=== PATIENT | male | born 1990 | race African-American/Black ===

== ENCOUNTER 2018-06-28 04:35 | Emergency (ER) | payer SELFPAY ==
[~2018-06-28] VITALS: Ht 175.3 cm; Wt 63.5 kg
[2018-06-28] MEDS ORDERED: IPRATROPIUM BROMIDE (0.02%) 0.5MG/2.5ML NEB HHN STA ×2 (05:02→08:06)
[2018-06-28] MEDS ORDERED: METHYLPREDNISOLONE SOD SUCC 125 MG/2 ML VIAL IV STA (05:02)
[2018-06-28] MEDS ORDERED: ALBUTEROL (0.083%) 2.5MG/3ML NEB HHN STA ×2 (05:02→08:06)
[2018-06-28] MEDS ORDERED: PREDNISONE 20MG TABLET PO ONE (05:15)
[2018-06-28 09:31] VITALS: BP 131/69
== END 2018-06-28 09:32 | disposition home or self-care (01) ==
LOC: ER 04:35 → EDSEX 04:35 → ER 09:32
DX: J45.901 Unspecified asthma with (acute) exacerbation (principal); R03.0 Elevated blood-pressure reading, without diagnosis of hypertension; F17.210 Nicotine dependence, cigarettes, uncomplicated
CPT/HCPCS: 71045; 94640; 99284; J7512; J7611

== ENCOUNTER 2018-06-29 14:41 | Emergency (ER) | payer SELFPAY ==
[~2018-06-29] VITALS: Ht 175.3 cm; Wt 69.0 kg
[2018-06-29] MEDS ORDERED: PREDNISONE 20MG TABLET PO STA (14:54)
[2018-06-29] MEDS ORDERED: ALBUTEROL (0.083%) 2.5MG/3ML NEB HHN STA (14:54)
[2018-06-29] MEDS ORDERED: IPRATROPIUM BROMIDE (0.02%) 0.5MG/2.5ML NEB HHN STA (14:54)
[2018-06-29] MEDS ORDERED: ALBUTEROL (0.083%) 2.5MG/3ML NEB HHN ONE (18:30)
[2018-06-29 19:49] VITALS: BP 115/67
== END 2018-06-29 19:50 | disposition home or self-care (01) ==
LOC: ER 14:41
DX: J45.901 Unspecified asthma with (acute) exacerbation (principal); F17.200 Nicotine dependence, unspecified, uncomplicated
CPT/HCPCS: 71045; 94640; 99283; 99406; J7512; J7611

== ENCOUNTER 2018-08-18 23:44 | Emergency (ER) | payer MEDICAID ==
[~2018-08-18] VITALS: Ht 175.3 cm; Wt 61.0 kg
[2018-08-19] MEDS ORDERED: TETANUS, DIPHTHERIA, PERTUSSIS VAC/PF 0.5ML (>7YR OLD) IM ONE (01:45)
[2018-08-19 02:21] VITALS: BP 125/69
== END 2018-08-19 02:31 | disposition home or self-care (01) ==
LOC: ER 23:44
DX: S81.852A Open bite, left lower leg, initial encounter (principal); W54.0XXA Bitten by dog, initial encounter; Y93.89 Activity, other specified; Y92.410 Unspecified street and highway as the place of occurrence of the external cause; F17.210 Nicotine dependence, cigarettes, uncomplicated; F12.90 Cannabis use, unspecified, uncomplicated
CPT/HCPCS: 90471; 90715; 99283

== ENCOUNTER 2018-08-29 00:42 | Emergency (ER) | payer MEDICAID ==
[~2018-08-29] VITALS: Ht 175.3 cm; Wt 63.5 kg
[2018-08-29] MEDS ORDERED: DEXAMETHASONE 10 MG/ML VIAL IV ONE (01:45)
[2018-08-29] MEDS ORDERED: MANNITOL 12.5G (25%) VIAL 50ML IV ONE (01:45)
[2018-08-29] MEDS ORDERED: AMOXICILLIN/POTASSIUM CLAVULANATE 875/125MG TAB PO ONE (02:00)
[2018-08-29 02:10] VITALS: BP 138/77
== END 2018-08-29 02:18 | disposition home or self-care (01) ==
LOC: ER 00:42
DX: S81.852A Open bite, left lower leg, initial encounter (principal); J45.909 Unspecified asthma, uncomplicated; F17.200 Nicotine dependence, unspecified, uncomplicated; F12.10 Cannabis abuse, uncomplicated; W54.0XXA Bitten by dog, initial encounter; Y93.89 Activity, other specified; Y92.89 Other specified places as the place of occurrence of the external cause; Y99.8 Other external cause status
CPT/HCPCS: 99283; J2150

== ENCOUNTER 2018-09-02 19:09 | Inpatient (IN) | payer MEDICAID ==
[~2018-09-02] VITALS: Ht 177.8 cm; Wt 61.2 kg
[2018-09-02] MEDS ORDERED: METHYLPREDNISOLONE SOD SUCC 125 MG/2 ML VIAL IV ONE (19:45)
[2018-09-02] MEDS ORDERED: MAGNESIUM 2 G PREMIX 50 ML IV ONE (19:45)
[2018-09-02] MEDS ORDERED: ALBUTEROL (0.083%) 2.5MG/3ML NEB HHN ONE (19:45)
[2018-09-02] MEDS ORDERED: IPRATROPIUM BROMIDE (0.02%) 0.5MG/2.5ML NEB HHN ONE (19:45)
[2018-09-02] MEDS ORDERED: EPINEPHRINE 1:1000 1 MG/ML AMP INJ ONE ×3 (20:00→21:30)
[2018-09-02] MEDS ORDERED: ALBUTEROL (0.5%) 2.5MG/0.5ML NEB HHN ONE (21:30)
[2018-09-02 22:15] VITALS: BP 122/64
[2018-09-02 23:30] VITALS: BP 122/64
[2018-09-03] VITALS (13 sets, daily range): BP systolic 107–155; BP diastolic 45–83
[2018-09-03] MEDS ORDERED: GUAIFENESIN 200MG/10ML SUGAR FREE UDC PO PRN (00:45)
[2018-09-03] MEDS ORDERED: ONDANSETRON HCL 4MG/2ML INJ IV PRN (00:45)
[2018-09-03] MEDS ORDERED: CLONIDINE 0.1MG TABLET PO PRN (00:45)
[2018-09-03] MEDS ORDERED: LEVOFLOXACIN 500MG PREMIX 100 ML IV SCH (00:45)
[2018-09-03] MEDS ORDERED: MAGNESIUM/ALUMINUM HYDROXIDE/SIMETHICONE 30ML UDC PO PRN (00:45)
[2018-09-03] MEDS ORDERED: ACETAMINOPHEN 325MG TABLET PO PRN (00:45)
[2018-09-03] MEDS ORDERED: IPRATROPIUM/ALBUTEROL 0.5-3(2.5)MG/3ML NEB INH PRN (00:45)
[2018-09-03 01:52] LABS: HEMATOCRIT. 36.8 % (42.0-52.0); HEMOGLOBIN. 11.8 g/dL (14.0-18.0); MEAN CORPUSCULAR HEMOGLOBIN 28.4 pg (28.0-32.0); MEAN CORPUSCULAR VOLUME 88.3 fL (80.0-94.0); MEAN PLATELET VOLUME 7.7 fl (7.4-10.4); PLATELET 422 x1000/uL (130-400); RED BLOOD CELL COUNT 4.17 mill/uL (4.7-6.1); RED CELL DISTRIBUTION WIDTH 12.5 % (11.6-14.6)
[2018-09-03 01:57] LABS: CHLORIDE 106 mEq/L (98-107)
[2018-09-03] MEDS: METHYLPREDNISOLONE SOD SUCC 125 MG/2 ML VIAL IV SCH ×3 (02:02→15:22)
[2018-09-03 02:38] LABS: BG BASE EXCESS -1.5 mmol/L (-2.0-2.0); BG CARBOXYHEMOGLOBIN 0.4 % (0.5-1.5); BG DEOXYHEMOGLOBIN 2.2 % (0.0-5.0); BG FRACTION INSPIRED OXYGEN 28; BG HCO3 ACT 24.3 mmol/L (22.0-26.0); BG METHEMOGLOBIN 0.4 % (0.0-1.5); BG OXYGEN SATURATION 97.8 % (92.0-98.5); BG PCO2 45.5 mmHg (35.0-45.0); BG PH 7.346 (7.350-7.450); BG PO2 104.2 mmHg (75.0-100.0); BG SAMPLE SITE RIGHT RADIAL; BG VENT MODE NASAL CANNULA
[2018-09-03 03:15] LABS: PLATELET ESTIMATE SLIGHTLY INCREASED
[2018-09-03] MEDS ORDERED: MVI, ADULT NO.1 10 ML, FOLIC ACID 1 MG, THIAMINE HCL 100 MG in SODIUM CHLORIDE 0.9% 1,0... IV SCH ×4 (04:00)
[2018-09-03] MEDS: IPRATROPIUM/ALBUTEROL 0.5-3(2.5)MG/3ML NEB HHN SCH ×5 (04:36→20:39)
[2018-09-03] MEDS ORDERED: LEVOFLOXACIN 500MG PREMIX 100 ML IV NR (05:00)
[2018-09-03] MEDS: SODIUM CHLORIDE 0.9% INJ 3ML FLUSH IVF SCH ×3 (05:06→21:51)
[2018-09-03] MEDS: FAMOTIDINE 20MG TABLET PO SCH ×2 (09:25→21:51)
[2018-09-03] MEDS ORDERED: IPRATROPIUM/ALBUTEROL 0.5-3(2.5)MG/3ML NEB HHN SCH (12:00)
[2018-09-03] MEDS ORDERED: METHYLPREDNISOLONE SOD SUCC 40 MG/ML VIAL IV SCH (15:30)
[2018-09-03] MEDS: NICOTINE 21MG PATCH TD SCH (16:38)
[2018-09-03] MEDS ORDERED: AZITHROMYCIN 500 MG in DEXT 5% WATER 250 ML IV SCH (17:00)
[2018-09-03] MEDS ORDERED: MONTELUKAST SODIUM 10MG TABLET PO SCH (17:00)
[2018-09-03] MEDS ORDERED: LORATADINE 10MG TABLET PO SCH (21:00)
[2018-09-03] MEDS ORDERED: FAMOTIDINE 20MG/2ML VIAL IV SCH (21:00)
[2018-09-03] MEDS: FLUTICASONE PROPIONATE 50MCG/SPRAY BOTTLE BOTHNSTRLS SCH (21:50)
[2018-09-03] MEDS: METHYLPREDNISOLONE SOD SUCC 40 MG/ML VIAL IV SCH (21:51)
[2018-09-04] VITALS (12 sets, daily range): BP systolic 109–137; BP diastolic 52–86
[2018-09-04] MEDS: IPRATROPIUM/ALBUTEROL 0.5-3(2.5)MG/3ML NEB HHN SCH ×5 (00:42→16:15)
[2018-09-04] MEDS: SODIUM CHLORIDE 0.9% INJ 3ML FLUSH IVF SCH (05:36)
[2018-09-04] MEDS ORDERED: LEVOFLOXACIN 500MG PREMIX 100 ML IV SCH (06:00)
[2018-09-04 06:16] LABS: HEMATOCRIT. 36.7 % (42.0-52.0); HEMOGLOBIN. 11.8 g/dL (14.0-18.0); MEAN CORPUSCULAR HEMOGLOBIN 28.6 pg (28.0-32.0); MEAN CORPUSCULAR VOLUME 88.6 fL (80.0-94.0); MEAN PLATELET VOLUME 8.5 fl (7.4-10.4); PLATELET 443 x1000/uL (130-400); RED BLOOD CELL COUNT 4.14 mill/uL (4.7-6.1); RED CELL DISTRIBUTION WIDTH 12.1 % (11.6-14.6)
[2018-09-04 06:44] LABS: CHLORIDE 101 mEq/L (98-107)
[2018-09-04] MEDS: METHYLPREDNISOLONE SOD SUCC 40 MG/ML VIAL IV SCH (07:03)
[2018-09-04] MEDS: FLUTICASONE PROPIONATE 50MCG/SPRAY BOTTLE BOTHNSTRLS SCH (08:38)
[2018-09-04] MEDS: FAMOTIDINE 20MG TABLET PO SCH (08:38)
[2018-09-04] MEDS: NICOTINE 21MG PATCH TD SCH (08:45)
[2018-09-05 08:04] LABS: PLATELET ESTIMATE INCREASED
== END 2018-09-04 16:25 | disposition home or self-care (01) | DRG 133 ==
LOC: ER 19:09 → 5EST 20:32 → EDBEDREQSVC 20:33 → EDBEDREQ 20:33 → EDBEDREQTM 20:33 → ENRESERV 20:52
PROVIDERS: ADMIT Internal Medicine; ATTEND Internal Medicine
DX: J96.00 Acute respiratory failure, unspecified whether with hypoxia or hypercapnia (principal); J45.902 Unspecified asthma with status asthmaticus; R65.10 Systemic inflammatory response syndrome (SIRS) of non-infectious origin without acute organ dysfunction; J20.9 Acute bronchitis, unspecified; J00 Acute nasopharyngitis [common cold]; F17.210 Nicotine dependence, cigarettes, uncomplicated; F12.90 Cannabis use, unspecified, uncomplicated
CPT/HCPCS: 36415; 36600; 71045; 80048; 82375; 82805; 83735; 87804; 93005; 94640; 94644; 96365; 96375; 99291; J0456; J1956; J2920; J2930; J3411; J3475; J3490; J7030; J7050; J7060; J7611; J7620

== ENCOUNTER 2018-09-09 00:14 | Emergency (ER) | payer MEDICAID | END 2018-09-09 01:36 | disposition left against medical advice (07) | LOC: ER 00:14 | DX: M79.641 Pain in right hand (principal); Z53.21 Procedure and treatment not carried out due to patient leaving prior to being seen by health care provider ==

== ENCOUNTER 2019-04-02 01:55 | Emergency (ER) | payer MEDICAID ==
[~2019-04-02] VITALS: Ht 175.3 cm; Wt 69.0 kg
[2019-04-02] MEDS ORDERED: IPRATROPIUM/ALBUTEROL 0.5-3(2.5)MG/3ML NEB HHN ONE (06:00)
[2019-04-02] MEDS ORDERED: PREDNISONE 20MG TABLET PO ONE (08:15)
[2019-04-02 08:28] LABS: CHLORIDE 117 mEq/L (98-107)
[2019-04-02 08:29] LABS: BASOPHILS % 0.6 % (0.0-2.0); EOSINOPHILS % 7.6 % (0.0-5.0); HEMATOCRIT. 37.8 % (42.0-52.0); HEMOGLOBIN. 12.4 g/dL (14.0-18.0); LYMPHOCYTES % 25.6 % (20.0-50.0); MEAN CORPUSCULAR HEMOGLOBIN 29.4 pg (28.0-32.0); MEAN CORPUSCULAR VOLUME 89.5 fL (80.0-94.0); MEAN PLATELET VOLUME 9.1 fl (7.4-10.4); MONOCYTES % 9.2 % (2.0-8.0); PLATELET 436 x1000/uL (130-400); RED BLOOD CELL COUNT 4.22 mill/uL (4.7-6.1); RED CELL DISTRIBUTION WIDTH 12.8 % (11.6-14.6)
[2019-04-02 08:33] LABS: ETHANOL BLOOD < 10 mg/dL
[2019-04-02 10:00] VITALS: BP 115/79
[2019-04-02 11:51] LABS: CLARITY URINE CLEAR (CLEAR); COLOR URINE YELLOW (YELLOW); KETONES URINE NEGATIVE (NEGATIVE); LEUKOCYTE ESTERASE URINE NEGATIVE (NEGATIVE); NITRITE URINE NEGATIVE (NEGATIVE); OCCULT BLOOD URINE 2+ (NEGATIVE); PH URINE 5.5 (4.5-8.0); PROTEIN URINE NEGATIVE (NEGATIVE); SPECIFIC GRAVITY URINE 1.023 (1.005-1.030); UROBILINOGEN URINE 0.2 E.U./dL (0.2-1.0)
[2019-04-02 11:59] LABS: *AMPHETAMINES SCREEN URINE PRESUMTIVE POSITIVE (NEGATIVE)
[2019-04-02 12:00] LABS: *BARBITURATES SCREEN URINE NEGATIVE (NEGATIVE); *BENZODIAZEPINES SCREEN URINE NEGATIVE (NEGATIVE); *COCAINE SCREEN URINE NEGATIVE (NEGATIVE); CANNABINOID URINE SCREEN PRESUMTIVE POSITIVE (NEGATIVE); METHADONE URINE SCREEN NEGATIVE (NEGATIVE); OPIATES URINE SCREEN NEGATIVE (NEGATIVE); PHENCYCLIDINE URINE SCREEN NEGATIVE (NEGATIVE)
== END 2019-04-02 11:36 | disposition home or self-care (01) ==
LOC: ER 01:55
DX: J45.909 Unspecified asthma, uncomplicated (principal)
CPT/HCPCS: 36415; 71045; 80053; 80305; 80320; 81003; 82962; 85025; 94640; 99284; J7512; J7620; Z7610; G0480

== ENCOUNTER 2019-09-06 12:46 | Emergency (ER) | payer MEDICAID ==
[~2019-09-06] VITALS: Ht 182.9 cm; Wt 76.0 kg
[2019-09-06 12:55] VITALS: BP 109/68
== END 2019-09-06 13:39 | disposition home or self-care (01) ==
LOC: ER 12:46
DX: S01.111D Laceration without foreign body of right eyelid and periocular area, subsequent encounter (principal); J45.909 Unspecified asthma, uncomplicated; X58.XXXD Exposure to other specified factors, subsequent encounter
CPT/HCPCS: 99281; Z7610

== ENCOUNTER 2019-10-19 16:33 | Emergency (ER) | payer MEDICAID ==
[~2019-10-19] VITALS: Ht 180.3 cm; Wt 65.0 kg
[2019-10-19] MEDS ORDERED: ALBUTEROL (0.083%) 2.5MG/3ML NEB HHN STA (17:26)
[2019-10-19] MEDS ORDERED: IPRATROPIUM BROMIDE (0.02%) 0.5MG/2.5ML NEB HHN STA (17:26)
[2019-10-19] MEDS ORDERED: PREDNISONE 20MG TABLET PO STA (17:26)
[2019-10-19 18:02] VITALS: BP 128/81
== END 2019-10-19 19:44 | disposition home or self-care (01) ==
LOC: ER 16:33
DX: J45.901 Unspecified asthma with (acute) exacerbation (principal); F17.210 Nicotine dependence, cigarettes, uncomplicated; Z71.6 Tobacco abuse counseling
CPT/HCPCS: 71045; 94644; 99285; 99406; J7512; J7611; Z7610

== ENCOUNTER 2019-11-01 15:09 | Emergency (ER) | payer MEDICAID ==
[~2019-11-01] VITALS: Ht 167.6 cm; Wt 65.0 kg
[2019-11-01 16:21] VITALS: BP 127/84
== END 2019-11-01 17:42 | disposition left against medical advice (07) ==
LOC: ER 15:09
DX: J45.909 Unspecified asthma, uncomplicated (principal); Z53.21 Procedure and treatment not carried out due to patient leaving prior to being seen by health care provider

== ENCOUNTER 2019-11-01 18:30 | Emergency (ER) | payer MEDICAID ==
[~2019-11-01] VITALS: Ht 167.6 cm; Wt 65.0 kg
[2019-11-01 18:33] VITALS: BP 127/65
[2019-11-01] MEDS ORDERED: PREDNISONE 20MG TABLET PO STA (19:01)
[2019-11-01] MEDS ORDERED: ALBUTEROL (0.083%) 2.5MG/3ML NEB HHN STA (19:01)
[2019-11-01] MEDS ORDERED: IPRATROPIUM BROMIDE (0.02%) 0.5MG/2.5ML NEB HHN STA (19:01)
== END 2019-11-01 21:44 | disposition home or self-care (01) ==
LOC: ER 18:30
DX: J45.901 Unspecified asthma with (acute) exacerbation (principal); F17.200 Nicotine dependence, unspecified, uncomplicated; F12.10 Cannabis abuse, uncomplicated
CPT/HCPCS: 99283; J7512; J7611; 99282

== ENCOUNTER 2019-11-11 13:47 | Emergency (ER) | payer MEDICAID ==
[~2019-11-11] VITALS: Ht 180.3 cm; Wt 63.5 kg
[2019-11-11] MEDS ORDERED: albuterol (14:42)
[2019-11-11] MEDS ORDERED: PREDNISONE 20MG TABLET PO ONE (20:15)
[2019-11-11] MEDS ORDERED: LEVOFLOXACIN 500MG TABLET PO ONE (20:15)
[2019-11-11] MEDS ORDERED: IPRATROPIUM/ALBUTEROL 0.5-3(2.5)MG/3ML NEB HHN ONE (20:15)
[2019-11-11 22:57] VITALS: BP 120/69
== END 2019-11-11 22:59 | disposition home or self-care (01) ==
LOC: ER 13:47
DX: S43.422A Sprain of left rotator cuff capsule, initial encounter (principal); J40 Bronchitis, not specified as acute or chronic; X58.XXXA Exposure to other specified factors, initial encounter; Y93.89 Activity, other specified; Y92.89 Other specified places as the place of occurrence of the external cause; Y99.8 Other external cause status; F17.290 Nicotine dependence, other tobacco product, uncomplicated; F12.10 Cannabis abuse, uncomplicated
CPT/HCPCS: 71045; 94640; 99283; J7512; J7620; Z7610

== ENCOUNTER 2020-05-01 14:55 | Emergency (ER) | payer MEDICAID ==
[~2020-05-01 14:55] MED LIST: albuterol
== END 2020-05-01 15:17 | disposition left against medical advice (07) ==
LOC: ER 14:55
DX: Z53.21 Procedure and treatment not carried out due to patient leaving prior to being seen by health care provider (principal)

== ENCOUNTER 2020-05-27 20:27 | Emergency (ER) | payer MEDICAID ==
[~2020-05-27] VITALS: Ht 175.3 cm; Wt 66.0 kg
[2020-05-27 20:53] VITALS: BP 125/102
[2020-05-27] MEDS ORDERED: PREDNISONE 20MG TABLET PO STA (22:03)
[2020-05-27] MEDS ORDERED: IPRATROPIUM BROMIDE (0.02%) 0.5MG/2.5ML NEB HHN STA (22:03)
[2020-05-27] MEDS ORDERED: ALBUTEROL (0.083%) 2.5MG/3ML NEB HHN STA (22:03)
== END 2020-05-27 23:45 | disposition left against medical advice (07) ==
LOC: ER 20:27
DX: J45.909 Unspecified asthma, uncomplicated (principal); R05 Cough
CPT/HCPCS: 71045; 94640; 99283; Z7610

== ENCOUNTER 2020-05-28 04:41 | Emergency (ER) | payer MEDICAID ==
[~2020-05-28] VITALS: Ht 175.3 cm; Wt 82.0 kg
[2020-05-28 07:22] VITALS: BP 124/82
[2020-08-20] MEDS ORDERED: MED4 MT (11:39)
[2020-08-20] MEDS ORDERED: ALBU18HF2 IH (11:39)
[2020-08-20] MEDS ORDERED: FLUT1DIS2 INH (11:39)
== END 2020-05-28 07:24 | disposition home or self-care (01) ==
LOC: ER 04:41
DX: J45.901 Unspecified asthma with (acute) exacerbation (principal); R03.0 Elevated blood-pressure reading, without diagnosis of hypertension; F17.200 Nicotine dependence, unspecified, uncomplicated; F12.90 Cannabis use, unspecified, uncomplicated
CPT/HCPCS: 99283

== ENCOUNTER 2020-07-05 22:39 | Emergency (ER) | payer MEDICAID ==
[~2020-07-05] VITALS: Ht 175.3 cm; Wt 65.0 kg
[2020-07-05] MEDS ORDERED: IPRATROPIUM BROMIDE (0.02%) 0.5MG/2.5ML NEB HHN STA (23:12)
[2020-07-05] MEDS ORDERED: PREDNISONE 20MG TABLET PO STA (23:12)
[2020-07-05] MEDS ORDERED: ALBUTEROL (0.083%) 2.5MG/3ML NEB HHN STA (23:12)
[2020-07-06 01:01] VITALS: BP 117/87
== END 2020-07-06 01:03 | disposition home or self-care (01) ==
LOC: ER 22:39
DX: J45.901 Unspecified asthma with (acute) exacerbation (principal); F17.200 Nicotine dependence, unspecified, uncomplicated; F12.10 Cannabis abuse, uncomplicated
CPT/HCPCS: 93005; 94640; 99283; J7512; Z7610

== ENCOUNTER 2020-07-13 01:18 | Emergency (ER) | payer MEDICAID ==
[~2020-07-13] VITALS: Ht 172.7 cm; Wt 69.0 kg
[2020-07-13] MEDS ORDERED: IPRATROPIUM BROMIDE (0.02%) 0.5MG/2.5ML NEB HHN STA (01:52)
[2020-07-13] MEDS ORDERED: ALBUTEROL (0.083%) 2.5MG/3ML NEB HHN STA (01:52)
[2020-07-13] MEDS ORDERED: PREDNISONE 20MG TABLET PO STA (01:52)
[2020-07-13 05:18] VITALS: BP 137/90
== END 2020-07-13 05:19 | disposition home or self-care (01) ==
LOC: ER 01:18
DX: J45.901 Unspecified asthma with (acute) exacerbation (principal); F12.10 Cannabis abuse, uncomplicated
CPT/HCPCS: 71045; 94644; 99285; J7512; Z7610

== ENCOUNTER 2020-08-01 03:18 | Emergency (ER) | payer MEDICAID ==
[~2020-08-01] VITALS: Ht 170.2 cm; Wt 59.0 kg
[2020-08-01] MEDS ORDERED: IPRATROPIUM BROMIDE (0.02%) 0.5MG/2.5ML NEB HHN STA (03:45)
[2020-08-01] MEDS ORDERED: ALBUTEROL (0.083%) 2.5MG/3ML NEB HHN STA (03:45)
[2020-08-01 05:44] VITALS: BP 125/76
[2020-08-02] MEDS ORDERED: FLUT1DIS2 IH (16:52)
[2020-08-02] MEDS ORDERED: MONT10TA21 PO (16:52)
== END 2020-08-01 05:46 | disposition home or self-care (01) ==
LOC: ER 03:18
DX: J45.901 Unspecified asthma with (acute) exacerbation (principal); F17.210 Nicotine dependence, cigarettes, uncomplicated; F12.90 Cannabis use, unspecified, uncomplicated
CPT/HCPCS: 93005; 94640; 99283; Z7610

== ENCOUNTER 2020-08-02 07:34 | Inpatient (IN) | payer MEDICAID ==
[~2020-08-02] VITALS: Ht 175.3 cm; Wt 60.8 kg
[2020-08-02] MEDS ORDERED: IPRATROPIUM BROMIDE (0.02%) 0.5MG/2.5ML NEB HHN STA (07:36)
[2020-08-02] MEDS ORDERED: ALBUTEROL (0.083%) 2.5MG/3ML NEB HHN STA (07:36)
[2020-08-02] MEDS ORDERED: METHYLPREDNISOLONE SOD SUCC 125 MG/2 ML VIAL IV STA (07:36)
[2020-08-02] MEDS ORDERED: MAGNESIUM 2 G PREMIX 50 ML IV STA (07:36)
[2020-08-02] MEDS ORDERED: SODIUM CHLORIDE 0.9% 1,000 ML IV ONE (07:36)
[2020-08-02 07:56] LABS: BASOPHILS % 0.8 % (0.0-2.0); EOSINOPHILS % 9.8 % (0.0-5.0); HEMATOCRIT. 37.9 % (42.0-52.0); HEMOGLOBIN. 12.2 g/dL (14.0-18.0); LYMPHOCYTES % 23.1 % (20.0-50.0); MEAN CORPUSCULAR HEMOGLOBIN 28.8 pg (28.0-32.0); MEAN CORPUSCULAR VOLUME 89.8 fL (80.0-94.0); MEAN PLATELET VOLUME 8.4 fl (7.4-10.4); MONOCYTES % 12.9 % (2.0-8.0); NEUTROPHILS % 53.4 % (40.0-76.0); PLATELET 317 x1000/uL (130-400); RED BLOOD CELL COUNT 4.22 mill/uL (4.7-6.1); RED CELL DISTRIBUTION WIDTH 12.9 % (11.6-14.6)
[2020-08-02 08:01] LABS: CHLORIDE 108 mEq/L (98-107)
[2020-08-02 08:04] LABS: ETHANOL BLOOD < 10 mg/dL
[2020-08-02 08:08] LABS: CREATINE KINASE 372 IU/L (39-308); PROTHROMBIN TIME 10.5 sec (9.6-11.0)
[2020-08-02] MEDS ORDERED: AZITHROMYCIN 500 MG in DEXT 5% WATER 250 ML IV ONE (08:30)
[2020-08-02] MEDS ORDERED: SODIUM CHLORIDE 0.9% 1000ML BAG (SEPSIS BOLUS) IV ONE (08:30)
[2020-08-02 10:42] VITALS: BP 131/56
[2020-08-02 12:00] VITALS: BP 140/97
[2020-08-02] MEDS ORDERED: DOCUSATE SODIUM 100MG CAPSULE PO PRN (12:15)
[2020-08-02] MEDS ORDERED: ACETAMINOPHEN 325MG TABLET PO PRN ×2 (12:15)
[2020-08-02] MEDS ORDERED: GUAIFENESIN 200MG/10ML SUGAR FREE UDC PO PRN (12:15)
[2020-08-02] MEDS ORDERED: LORAZEPAM 0.5MG TABLET PO PRN (12:15)
[2020-08-02] MEDS ORDERED: HYDROCODONE/ACETAMINOPHEN 5/325MG TABLET PO PRN (12:15)
[2020-08-02] MEDS ORDERED: IPRATROPIUM/ALBUTEROL 0.5-3(2.5)MG/3ML NEB HHN PRN (12:15)
[2020-08-02] MEDS ORDERED: CLONIDINE 0.1MG TABLET PO PRN (12:15)
[2020-08-02] MEDS ORDERED: IPRATROPIUM/ALBUTEROL 0.5-3(2.5)MG/3ML NEB HHN NR (12:29)
[2020-08-02 12:36] LABS: BG BASE EXCESS -2.9 mmol/L (-2.0-2.0); BG CARBOXYHEMOGLOBIN 0.3 % (0.5-1.5); BG DEOXYHEMOGLOBIN 10.9 % (0.0-5.0); BG HCO3 ACT 24.7 mmol/L (22.0-26.0); BG METHEMOGLOBIN 0.1 % (0.0-1.5); BG OXYGEN SATURATION 89.1 % (92.0-98.5); BG OXYHEMOGLOBIN 88.7 % (94.0-97.0); BG PCO2 54.8 mmHg (35.0-45.0); BG PH 7.271 (7.350-7.450); BG PO2 62.7 mmHg (75.0-100.0); BG SAMPLE SITE RIGHT BRACHIAL; BG VENT MODE ROOM AIR
[2020-08-02] MEDS: METHYLPREDNISOLONE SOD SUCC 40 MG/ML VIAL IV SCH ×2 (12:37→21:21)
[2020-08-02] MEDS: LORATADINE 10MG TABLET PO SCH (13:47)
[2020-08-02] MEDS: FAMOTIDINE 20MG TABLET PO SCH ×2 (13:47→20:44)
[2020-08-02 15:29] LABS: CLARITY URINE CLEAR (CLEAR); COLOR URINE YELLOW (YELLOW); KETONES URINE TRACE (NEGATIVE); LEUKOCYTE ESTERASE URINE NEGATIVE (NEGATIVE); NITRITE URINE NEGATIVE (NEGATIVE); OCCULT BLOOD URINE NEGATIVE (NEGATIVE); PH URINE 5.5 (4.5-8.0); PROTEIN URINE NEGATIVE (NEGATIVE)
[2020-08-02 16:00] VITALS: BP 122/60
[2020-08-02] MEDS ORDERED: METHYLPREDNISOLONE SOD SUCC 40 MG/ML VIAL IV SCH (16:00)
[2020-08-02] MEDS: SODIUM CHLORIDE 0.9% 1,000 ML IV SCH (16:11)
[2020-08-02 16:18] LABS: *AMPHETAMINES SCREEN URINE PRESUMTIVE POSITIVE (NEGATIVE); *BARBITURATES SCREEN URINE NEGATIVE (NEGATIVE); *BENZODIAZEPINES SCREEN URINE NEGATIVE (NEGATIVE); *COCAINE SCREEN URINE NEGATIVE (NEGATIVE)
[2020-08-02 16:19] LABS: CANNABINOID URINE SCREEN PRESUMTIVE POSITIVE (NEGATIVE); OPIATES URINE SCREEN NEGATIVE (NEGATIVE); PHENCYCLIDINE URINE SCREEN NEGATIVE (NEGATIVE)
[2020-08-02 16:26] LABS: METHADONE URINE SCREEN NEGATIVE (NEGATIVE)
[2020-08-02] MEDS ORDERED: MONT10TA21 PO (16:52)
[2020-08-02] MEDS ORDERED: FLUT1DIS2 IH (16:52)
[2020-08-02] MEDS ORDERED: MONTELUKAST SODIUM 10MG TABLET PO SCH (17:00)
[2020-08-02] MEDS ORDERED: PNEUMOCOCCAL 23-VAL P-SAC VAC 0.5 ML IM ONE (18:00)
[2020-08-02 20:00] VITALS: BP 140/71
[2020-08-02] MEDS ORDERED: LORATADINE 10MG TABLET PO SCH (21:00)
[2020-08-02] MEDS: IPRATROPIUM/ALBUTEROL 0.5-3(2.5)MG/3ML NEB HHN SCH (21:42)
[2020-08-03] VITALS: BP 122/65
[2020-08-03] MEDS: SODIUM CHLORIDE 0.9% 1,000 ML IV SCH (01:54)
[2020-08-03] MEDS: IPRATROPIUM/ALBUTEROL 0.5-3(2.5)MG/3ML NEB HHN SCH ×3 (02:27→13:34)
[2020-08-03 04:00] VITALS: BP 136/74
[2020-08-03] MEDS: METHYLPREDNISOLONE SOD SUCC 40 MG/ML VIAL IV SCH ×2 (05:32→13:26)
[2020-08-03 06:35] LABS: HEMATOCRIT. 34.8 % (42.0-52.0); HEMOGLOBIN. 11.5 g/dL (14.0-18.0); MEAN CORPUSCULAR HEMOGLOBIN 29.6 pg (28.0-32.0); MEAN CORPUSCULAR VOLUME 89.5 fL (80.0-94.0); MEAN PLATELET VOLUME 9.2 fl (7.4-10.4); PLATELET 282 x1000/uL (130-400); RED BLOOD CELL COUNT 3.88 mill/uL (4.7-6.1); RED CELL DISTRIBUTION WIDTH 12.8 % (11.6-14.6)
[2020-08-03 06:42] LABS: CHLORIDE 106 mEq/L (98-107)
[2020-08-03 06:53] LABS: TOTAL IRON BINDING CAPACITY 306 ug/dL (250-450)
[2020-08-03 07:21] LABS: FOLIC ACID (FOLATE) SERUM 8.5 ng/mL (>5.38)
[2020-08-03 08:00] VITALS: BP 125/47
[2020-08-03] MEDS: FAMOTIDINE 20MG TABLET PO SCH (08:42)
[2020-08-03] MEDS: LORATADINE 10MG TABLET PO SCH (08:42)
[2020-08-03 09:48] LABS: PLATELET ESTIMATE NORMAL
[2020-08-03 11:22] VITALS: BP 134/72
[2020-08-03 16:33] VITALS: BP 120/77
== END 2020-08-03 18:22 | disposition home or self-care (01) | DRG 133 ==
LOC: ER 07:48 → 6WST 08:41 → EDBEDREQ 09:13 → ENRESERV 10:13
PROVIDERS: ADMIT Internal Medicine; ATTEND Internal Medicine
PROC: 5A09357 Assistance with Respiratory Ventilation, Less than 24 Consecutive Hours, Continuous Positive Airway Pressure (ICD-10-PCS; principal; 2020-08-02)
PROC: 5A09357 Assistance with Respiratory Ventilation, Less than 24 Consecutive Hours, Continuous Positive Airway Pressure (ICD-10-PCS; 2020-08-03)
DX: J96.01 Acute respiratory failure with hypoxia (principal); J45.901 Unspecified asthma with (acute) exacerbation; J18.9 Pneumonia, unspecified organism; D64.9 Anemia, unspecified; E86.0 Dehydration; E87.2 Acidosis; F12.90 Cannabis use, unspecified, uncomplicated
CPT/HCPCS: 36415; 36600; 71045; 80048; 80053; 80305; 80320; 81003; 82375; 82550; 82607; 82728; 82746; 82805; 83540; 83550; 83605; 83880; 84145; 84484; 85025; 90732; 93005; 94640; 94644; 94660; 99291; J0456; J2920; J2930; J3475; J7030; J7060; G0480

== ENCOUNTER 2020-08-05 02:19 | Emergency (ER) | payer MEDICAID ==
[~2020-08-05] VITALS: Ht 167.6 cm; Wt 80.0 kg
[~2020-08-05 02:19] MED LIST changes: +FLUT1DIS2 IH; +MONT10TA21 PO
[2020-08-05] MEDS ORDERED: ALBUTEROL (0.083%) 2.5MG/3ML NEB HHN STA (02:55)
[2020-08-05] MEDS ORDERED: IPRATROPIUM BROMIDE (0.02%) 0.5MG/2.5ML NEB HHN STA (02:55)
[2020-08-05 04:10] VITALS: BP 121/80
[2020-08-20] MEDS ORDERED: ALBU18HF2 IH (11:39)
[2020-08-20] MEDS ORDERED: MED4 MT (11:39)
[2020-08-20] MEDS ORDERED: FLUT1DIS2 INH (11:39)
== END 2020-08-05 04:05 | disposition home or self-care (01) ==
LOC: ER 02:19
DX: J45.909 Unspecified asthma, uncomplicated (principal); F12.10 Cannabis abuse, uncomplicated
CPT/HCPCS: 71045; 93005; 94640; 99283; Z7610

== ENCOUNTER 2020-10-02 05:29 | Emergency (ER) | payer MEDICAID ==
[~2020-10-02] VITALS: Ht 180.3 cm; Wt 82.0 kg
[~2020-10-02 05:29] MED LIST changes: +ALBU18HF2 IH; -FLUT1DIS2 IH; +FLUT1DIS2 INH; +MED4 MT; -albuterol
[2020-10-02] MEDS ORDERED: ALBUTEROL 6.7GM HFA INHALER ORI ONE ×2 (06:15→15:30)
[2020-10-02] MEDS ORDERED: METHYLPREDNISOLONE SOD SUCC 125 MG/2 ML VIAL IV STA (06:15)
[2020-10-02 06:49] LABS: BASOPHILS % 0.6 % (0.0-2.0); EOSINOPHILS % 11.7 % (0.0-5.0); HEMATOCRIT. 39.2 % (42.0-52.0); HEMOGLOBIN. 12.8 g/dL (14.0-18.0); MEAN CORPUSCULAR HEMOGLOBIN 29.6 pg (28.0-32.0); MEAN CORPUSCULAR VOLUME 90.5 fL (80.0-94.0); MEAN PLATELET VOLUME 8.4 fl (7.4-10.4); MONOCYTES % 10.2 % (2.0-8.0); NEUTROPHILS % 53.5 % (40.0-76.0); PLATELET 358 x1000/uL (130-400); RED BLOOD CELL COUNT 4.33 mill/uL (4.7-6.1); RED CELL DISTRIBUTION WIDTH 12.7 % (11.6-14.6)
[2020-10-02 06:54] LABS: CHLORIDE 109 mEq/L (98-107)
[2020-10-02 06:58] LABS: ETHANOL BLOOD < 10 mg/dL
[2020-10-02 11:47] LABS: *BARBITURATES SCREEN URINE NEGATIVE (NEGATIVE)
[2020-10-02 11:48] LABS: *AMPHETAMINES SCREEN URINE PRESUMTIVE POSITIVE (NEGATIVE); *BENZODIAZEPINES SCREEN URINE NEGATIVE (NEGATIVE); CANNABINOID URINE SCREEN PRESUMTIVE POSITIVE (NEGATIVE); METHADONE URINE SCREEN NEGATIVE (NEGATIVE); OPIATES URINE SCREEN NEGATIVE (NEGATIVE); PHENCYCLIDINE URINE SCREEN NEGATIVE (NEGATIVE)
[2020-10-02 11:50] LABS: *COCAINE SCREEN URINE NEGATIVE (NEGATIVE)
[2020-10-02 16:04] VITALS: BP 130/79
== END 2020-10-02 16:06 | disposition home or self-care (01) ==
LOC: ER 05:29
DX: J45.901 Unspecified asthma with (acute) exacerbation (principal); Z20.828 Contact with and (suspected) exposure to other viral communicable diseases; R06.03 Acute respiratory distress; Z79.899 Other long term (current) drug therapy
CPT/HCPCS: 36415; 71045; 80053; 80305; 80320; 84484; 85025; 87635; 93005; 94640; 96374; 99285; J2930; Z7610; G0480

== ENCOUNTER 2020-10-14 06:50 | Emergency (ER) | payer MEDICAID ==
[~2020-10-14] VITALS: Ht 175.3 cm; Wt 64.0 kg
[2020-10-14] MEDS ORDERED: ALBUTEROL (0.083%) 2.5MG/3ML NEB HHN STA (07:12)
[2020-10-14] MEDS ORDERED: PREDNISONE 20MG TABLET PO STA (07:12)
[2020-10-14 07:35] VITALS: BP 149/89
== END 2020-10-14 09:08 | disposition home or self-care (01) ==
LOC: ER 06:50
DX: J45.901 Unspecified asthma with (acute) exacerbation (principal); Z79.899 Other long term (current) drug therapy
CPT/HCPCS: 71045; 93005; 94640; 99283; J7512; Z7610

== ENCOUNTER 2020-10-14 09:28 | Emergency (ER) | payer MEDICAID ==
[~2020-10-14] VITALS: Ht 175.3 cm; Wt 64.0 kg
[2020-10-14 09:30] VITALS: BP 145/92
== END 2020-10-14 09:57 | disposition home or self-care (01) ==
LOC: ER 09:47
DX: R06.02 Shortness of breath (principal); Z53.21 Procedure and treatment not carried out due to patient leaving prior to being seen by health care provider

== ENCOUNTER 2020-11-28 15:23 | Emergency (ER) | payer MEDICAID ==
[~2020-11-28] VITALS: Ht 175.3 cm; Wt 63.0 kg
[2020-11-28] MEDS ORDERED: PREDNISONE 20MG TABLET PO STA (15:47)
[2020-11-28] MEDS ORDERED: ALBUTEROL (0.083%) 2.5MG/3ML NEB HHN STA ×2 (15:47→16:36)
[2020-11-28] MEDS ORDERED: IPRATROPIUM BROMIDE (0.02%) 0.5MG/2.5ML NEB HHN STA ×2 (15:47→16:36)
[2020-11-28 17:54] VITALS: BP 118/75
== END 2020-11-28 17:55 | disposition home or self-care (01) ==
LOC: ER 15:23
DX: J45.901 Unspecified asthma with (acute) exacerbation (principal); F12.10 Cannabis abuse, uncomplicated; F17.290 Nicotine dependence, other tobacco product, uncomplicated
CPT/HCPCS: 94640; 99284; 99406; J7512; Z7610